=== PATIENT | female | born 1990 | race Caucasian/White ===

== ENCOUNTER 2016-11-12 18:50 | Emergency (ER) | payer OTHER ==
[~2016-11-12] VITALS: Ht 165.1 cm; Wt 61.2 kg
[~2016-11-12 18:50] MED LIST: AMOXICILLIN500 M2 PO; AUGMENTIN 875/11 TAB; FOLIC ACID1 M1 PO; IBUPROFEN600 MG PO; PRENATAL VITAMI1 T10 PO; Q TUSSIN DM PO
[2016-11-12 19:27] VITALS: BP 136/82
--- NOTE | 2016-11-12 22:25 | NUR ---
PATIENT LEFT WITHOUT BEING SEEN BY DR. GAYLE. NO FURTHER CARE PROVIDED FOR PATIENT.
== END 2016-11-12 22:25 | disposition left against medical advice (07) ==
LOC: MED 18:50
DX: R10.30 Lower abdominal pain, unspecified (principal); S80.10XA Contusion of unspecified lower leg, initial encounter; M25.559 Pain in unspecified hip; V43.52XA Car driver injured in collision with other type car in traffic accident, initial encounter; Y93.89 Activity, other specified; Y92.488 Other paved roadways as the place of occurrence of the external cause; Y99.8 Other external cause status; Z53.21 Procedure and treatment not carried out due to patient leaving prior to being seen by health care provider

== ENCOUNTER 2016-12-06 09:29 | Emergency (ER) | payer OTHER ==
[~2016-12-06] VITALS: Ht 165.1 cm; Wt 59.0 kg
[2016-12-06 09:37] VITALS: BP 148/82
--- NOTE | 2016-12-06 11:39 | NUR ---
PATIENT LEFT WITHOUT BEING SEEN BY . NO FURTHER CARE PROVIDED FOR PATIENT.
== END 2016-12-06 11:39 | disposition left against medical advice (07) ==
LOC: MED 09:29
DX: H57.12 Ocular pain, left eye (principal); Z53.21 Procedure and treatment not carried out due to patient leaving prior to being seen by health care provider

== ENCOUNTER 2017-12-05 12:51 | Emergency (ER) | payer OTHER ==
[~2017-12-05] VITALS: Ht 165.1 cm; Wt 62.6 kg
[2017-12-05 13:33] VITALS: BP 115/72
--- NOTE | 2017-12-05 13:40 | NUR ---
27Y/F C/O LOWER PELVIC PAIN X1 MONTH, INTERMITTENT, SHARP AND CONSTANT FOR 30 MINS. HX: HEART MURMUR. SURGICAL: . PATIENT POSITIONED FOR COMFORT; ER MD MADE AWARE OF PT STATUS.
--- NOTE | 2017-12-05 14:56 | NUR ---
Patient being evaluated by physician at bedside.
[2017-12-05 15:07] LABS: BILIRUBIN,URINE NEGATIVE (NEGATIVE); BLOOD, URINE NEGATIVE (NEGATIVE); COLOR,URINE YELLOW (YELLOW); LEUKOCYTE ESTERASE ,URINE TRACE (NEGATIVE); NITRITE, URINE NEGATIVE (NEGATIVE); UGLUCOSE NEGATIVE (NEGATIVE)
[2017-12-05 15:13] LABS: APPEARANCE,URINE SLIGHTLY HAZY (CLEAR)
[2017-12-05 15:18] LABS: RBC,URINE 0-5 (RARE) /HPF (0-5)
[2017-12-05 17:05] VITALS: BP 114/70
--- NOTE | 2017-12-05 17:05 | NUR ---
Patient discharged with v/s stable. Written and verbal after care instructions given and explained. Patient alert, oriented and verbalized understanding of instructions. Ambulatory with steady gait. All questions addressed prior to discharge. ID band removed. Patient advised to follow up with PMD. Rx of COLACE, LEVAQUIN, FIORICET given. Patient educated on indication of medication including possible reaction and side effects. Opportunity to ask questions provided and answered.
== END 2017-12-05 17:05 | disposition home or self-care (01) ==
LOC: MED 12:51
DX: N83.202 Unspecified ovarian cyst, left side (principal); N39.0 Urinary tract infection, site not specified; J45.909 Unspecified asthma, uncomplicated; Z88.8 Allergy status to other drugs, medicaments and biological substances
CPT/HCPCS: 74018; 76856; 81001; 81025; 87086; 99285

== ENCOUNTER 2019-02-27 16:44 | Emergency (ER) | payer OTHER ==
[~2019-02-27] VITALS: Ht 167.6 cm; Wt 63.5 kg
[2019-02-27 16:50] VITALS: BP 112/68
--- NOTE | 2019-02-27 16:53 | NUR ---
PATIENT AMBULATED TO ER BED 12.
--- NOTE | 2019-02-27 16:59 | NUR ---
PT C/O RASH X1 WEEK STARTED ON CHEST, NOW SPREAD TO STOMACH AND BACK. TRIED LOTRIMIN CREAM AND TEA TREE OIL WITH NO RELIEF . DENIES N/V/D; SKIN IS PINK/WARM/DRY; AAOX4 WITH EVEN AND STEADY GAIT; LUNGS CLEAR BL; HR EVEN AND REGULAR; PT DENIES ANY FEVER, CP, SOB, OR COUGH AT THIS TIME; PATIENT STATES PAIN OF 0/10 AT THIS TIME; VSS; PATIENT POSITIONED FOR COMFORT; HOB ELEVATED; BEDRAILS UP X2; BED DOWN. ER MD MADE AWARE OF PT STATUS.
[2019-02-27 18:11] VITALS: BP 112/68
--- NOTE | 2019-02-27 18:11 | NUR ---
Patient discharged with v/s stable. Written and verbal after care instructions given and explained. Patient verbalized understanding. Ambulatory with steady gait. All questions addressed prior to discharge. Advised to follow up with PMD.
== END 2019-02-27 18:11 | disposition home or self-care (01) ==
LOC: MED 16:44
DX: L42 Pityriasis rosea (principal); J45.909 Unspecified asthma, uncomplicated; Z86.79 Personal history of other diseases of the circulatory system; Z88.5 Allergy status to narcotic agent; Z88.8 Allergy status to other drugs, medicaments and biological substances
CPT/HCPCS: 99281

== ENCOUNTER 2021-08-17 08:07 | Emergency (ER) | payer OTHER ==
[~2021-08-17] VITALS: Ht 165.1 cm; Wt 63.0 kg
[2021-08-17 08:12] VITALS: BP 116/65
--- NOTE | 2021-08-17 08:18 | NUR ---
pt ambulated to bed 6
--- NOTE | 2021-08-17 08:28 | NUR ---
30YO F C/O SORE THROAT, DYSPHAGIA, PRODUCTIVE COUGH, ABDOMINAL PAIN AND DIARRHEA X 3 DAYS. PT ALSO STATES FEELING WARM YESTERDAY. DENIES RUNNY NOSE, VOMITING. PT STATES SHE RECENTLY TRAVELLED TO [place] AND RETURNED TO [place] 3 DAYS AGO. COVID TEST DONE, RESULTS WERE NEGATIVE. NO MEDICATIONS TAKEN. IN ED, PT TEMP= 99.6. NOT IN RESPIRATORY DISTRESS. CLEAR BREATH SOUNDS. ABDOMEN SOFT, NONTENDER WITH ACTIVE BOWEL SOUNDS ON ALL QUADRANTS. ERMD MADE AWARE OF PT STATUS. PMH: NONE MEDs: NONE NKA
--- NOTE | 2021-08-17 08:44 | NUR ---
STREP SWABS DONE. WALKED TO LAB.
[2021-08-17] MEDS ORDERED: DEXAMETHASONE 4 MG TAB ONE (08:51)
[2021-08-17] MEDS: DEXAMETHASONE 4 MG/ML VIAL PO ONE (08:57)
[2021-08-17] MEDS: ACETAMINOPHEN EXTRA STRENGTH 500 MG TAB PO ONE (08:58)
[2021-08-17] MEDS ORDERED: DEXA4TAB5 PO (09:34)
[2021-08-17] MEDS ORDERED: ACET-1195 PO (09:34)
[2021-08-17] MEDS ORDERED: AMOX500C25 PO (09:34)
[2021-08-17 09:47] VITALS: BP 116/65
--- NOTE | 2021-08-17 09:47 | NUR ---
Patient discharged with v/s stable. Written and verbal after care instructions given and explained. Patient alert, oriented and verbalized understanding of instructions. Ambulatory with steady gait. All questions addressed prior to discharge. ID band removed. Patient advised to follow up with PMD. Rx of ACETAMINOPHEN, AMOXICILLIN, DEXAMETHASONE given. Patient educated on indication of medication including possible reaction and side effects. Opportunity to ask questions provided and answered.
== END 2021-08-17 09:47 | disposition home or self-care (01) ==
LOC: MED 08:07
DX: J02.0 Streptococcal pharyngitis (principal); J45.909 Unspecified asthma, uncomplicated; Z79.899 Other long term (current) drug therapy; Z88.5 Allergy status to narcotic agent; Z88.6 Allergy status to analgesic agent
CPT/HCPCS: 87081; 99283; J1100

== ENCOUNTER 2021-10-22 08:38 | Emergency (ER) | payer OTHER ==
[~2021-10-22] VITALS: Ht 165.1 cm; Wt 63.5 kg
[~2021-10-22 08:38] MED LIST changes: +ACET-1195 PO; +AMOX500C25 PO; -AMOXICILLIN500 M2 PO; -AUGMENTIN 875/11 TAB; +DEXA4TAB5 PO; -FOLIC ACID1 M1 PO; -IBUPROFEN600 MG PO; -PRENATAL VITAMI1 T10 PO; -Q TUSSIN DM PO
[2021-10-22 08:40] VITALS: BP 111/81
--- NOTE | 2021-10-22 08:46 | NUR ---
PT AMB TO BED 7. HANDED ON URINE CUP.
--- NOTE | 2021-10-22 09:12 | NUR ---
PT MOVED FROM BED 7 TO CHAIR C
--- NOTE | 2021-10-22 09:14 | NUR ---
30 Y/O F C/O URINARY BURNING FOR 12 DAYS. PT STATED SHE HAS A HISTORY OF FREQUENT UTI. PT STATED SHE TOOK PYRAZINAMIDE, PT URINE WAS ORANGE. PT HAS NO PAIN AT THIS TIME. ALLERGIES: IBUPROFEN, HYDROCODONE PMH: PT STATED SHE HAS HEART MURMUR, C/S 2010, ENDOMETRIOSIS 2019
--- NOTE | 2021-10-22 09:20 | NUR ---
pt to er chair A
[2021-10-22] MEDS ORDERED: PENI500T20 PO (10:31)
[2021-10-22] MEDS ORDERED: CEPH-588 PO (10:34)
[2021-10-22 10:49] VITALS: BP 110/60
[2021-10-22 11:13] LABS: APPEARANCE,URINE CLEAR (CLEAR); BILIRUBIN,URINE NEGATIVE (NEGATIVE); BLOOD, URINE NEGATIVE (NEGATIVE); COLOR,URINE ORANGE (YELLOW); LEUKOCYTE ESTERASE ,URINE 2+ (NEGATIVE); NITRITE, URINE POSITIVE (NEGATIVE); UGLUCOSE 1+ (NEGATIVE)
[2021-10-22 11:45] LABS: RBC,URINE 0-5 /HPF (0-5)
== END 2021-10-22 10:49 | disposition home or self-care (01) ==
LOC: MED 08:38
DX: N39.0 Urinary tract infection, site not specified (principal); J45.909 Unspecified asthma, uncomplicated; Z98.890 Other specified postprocedural states; Z79.899 Other long term (current) drug therapy; Z88.5 Allergy status to narcotic agent; Z88.6 Allergy status to analgesic agent
CPT/HCPCS: 81001; 81025; 87086; 99283

== ENCOUNTER 2024-06-26 11:17 | Emergency (ER) | payer OTHER ==
[~2024-06-26] VITALS: Ht 165.1 cm; Wt 66.7 kg
[~2024-06-26 11:17] MED LIST changes: +CEPH-588 PO
[2024-06-26 11:26] VITALS: BP 126/78; PULSE 73; RESP 15; TEMP 98.3; O2SAT 99
[2024-06-26 11:42] VITALS: O2SAT 98
[2024-06-26] MEDS: ACETAMINOPHEN EXTRA STRENGTH 500 MG TAB PO ONE (13:00)
[2024-06-26] MEDS ORDERED: ACET500T99 PO (13:19)
== END 2024-06-26 13:27 | disposition home or self-care (01) ==
LOC: MED 11:17
DX: S56.311A Strain of extensor or abductor muscles, fascia and tendons of right thumb at forearm level, initial encounter (principal); J45.909 Unspecified asthma, uncomplicated; Z98.890 Other specified postprocedural states; Z79.899 Other long term (current) drug therapy; Z88.5 Allergy status to narcotic agent; Z88.6 Allergy status to analgesic agent; X58.XXXA Exposure to other specified factors, initial encounter; Y92.89 Other specified places as the place of occurrence of the external cause; Y93.89 Activity, other specified; Y99.8 Other external cause status
CPT/HCPCS: 73130; 99283; Q0092